=== PATIENT | male | born 1980 | race Caucasian/White ===

== ENCOUNTER 2018-09-28 01:57 | Emergency (ER) | payer OTHER ==
[~2018-09-28] VITALS: Ht 185.4 cm; Wt 83.9 kg
[2018-09-28] MEDS ORDERED: TRAMADOL 50 MG50 MG PO (02:12)
[2018-09-28 05:58] VITALS: BP 106/68
== END 2018-09-28 05:59 | disposition home or self-care (01) ==
LOC: EDSEX 01:57 → ER 01:57
DX: F10.129 Alcohol abuse with intoxication, unspecified (principal)